=== PATIENT | female | born 1990 | race Caucasian/White ===

== ENCOUNTER 2017-12-15 15:59 | Emergency (ER) | payer OTHER ==
[~2017-12-15] VITALS: Ht 172.7 cm; Wt 135.7 kg
[~2017-12-15 15:59] MED LIST: BENADRYL25 MG PO; PRENATAL1 EACH PO; TRAZODONE HCL100 MG PO
[2017-12-15 16:35] LABS: APPEARANCE CLOUDY ((CLEAR)); BILIRUBIN NEGATIVE; BLOOD SMALL; COLOR YELLOW ((YELLOW)); GLUCOSE (STRIP) NEGATIVE; KETONES NEGATIVE; LEUKOCYTES LARGE; NITRITE NEGATIVE; PROTEIN (STRIP) NEGATIVE; SPECIFIC GRAVITY 1.008 (1.000-1.030); UROBILINOGEN 0.2 MG/DL (0.2-1.0)
[2017-12-15 16:50] LABS: EPITHELIAL CELLS 2+ /HPF; RED BLOOD CELLS 0-5 /HPF (0-5); WHITE BLOOD CELLS 20-30 /HPF (0-5)
[2017-12-15 16:51] LABS: BACTERIA 1+ /HPF; MUCUS NONE SEEN /LPF
[2017-12-15 16:55] LABS: BASOPHIL (%) 0.7 % (0-1); BASOPHIL COUNT 0.1 K/uL (0-0.1); EOSINOPHIL (%) 5.5 % (0-5); EOSINOPHIL COUNT 0.4 K/uL (0-0.3); HEMATOCRIT 36.7 % (36.0-46.0); HEMOGLOBIN 12.6 G/DL (11.9-15.5); IMMATURE GRANULOCYTE (%) 0.1 % (0.0-0.7); LYMPHOCYTE (%) 41.9 % (15-42); LYMPHOCYTE COUNT 2.8 K/uL (1.0-2.8); MCH 30.2 PG (29.0-34.0); MCHC 34.3 G/DL (30.0-36.0); MONOCYTE (%) 6.8 % (3-12); MONOCYTE COUNT 0.5 K/uL (0-0.8); PLATELET COUNT 252 K/uL (156-360); RBC DIS.WIDTH-CV 12.4 % (11.8-14.6); RED BLOOD COUNT 4.17 M/uL (3.80-5.20); WHITE BLOOD COUNT 6.8 K/uL (4.1-10.2)
[2017-12-15] MEDS ORDERED: KEFLEX500 MG PO (16:59)
[2017-12-15 17:06] LABS: CHLORIDE 107 mEq/L (99-109); POTASSIUM 3.9 mEq/L (3.7-5.4); SODIUM 141 mEq/L (136-147)
[2017-12-15 17:07] LABS: GLUCOSE 94 mg/dL (70-99)
[2017-12-15 17:11] LABS: CREATININE 0.8 mg/dL (0.6-1.3); GFR ESTIMATE (CALCULATED) > 59 mL/min/
[2017-12-15 17:12] LABS: UREA NITROGEN (BUN) 10 mg/dL (9-23)
[2017-12-15 17:21] LABS: QUANTITATIVE HCG < 4.0 MIU/ML
[2017-12-15 18:20] VITALS: BP 139/82
== END 2017-12-15 18:21 | disposition home or self-care (01) ==
LOC: EME 15:59 → EXP 15:59
PROVIDERS: Physician Assistant
DX: N39.0 Urinary tract infection, site not specified (principal); F32.9 Major depressive disorder, single episode, unspecified; F41.9 Anxiety disorder, unspecified; L40.9 Psoriasis, unspecified
CPT/HCPCS: 74176; 80048; 81003; 84702; 85025; 99281; 99284